=== PATIENT | male | born 1980 | race Caucasian/White ===

== ENCOUNTER 2018-11-13 17:03 | Emergency (ER) | payer SELFPAY ==
[~2018-11-13] VITALS: Ht 182.9 cm; Wt 127.0 kg
[2018-11-13] MEDS ORDERED: ONDANSETRON ODT8 MG PO (18:26)
== END 2018-11-13 18:43 | disposition home or self-care (01) ==
LOC: ED 17:03
DX: J10.1 Influenza due to other identified influenza virus with other respiratory manifestations (principal); Z88.0 Allergy status to penicillin
CPT/HCPCS: 87502; 99283

== ENCOUNTER 2019-06-08 14:07 | Emergency (ER) | payer OTHER ==
[~2019-06-08] VITALS: Ht 182.9 cm; Wt 124.7 kg
[~2019-06-08 14:07] MED LIST: ONDANSETRON ODT8 MG PO
[2019-06-08] MEDS ORDERED: NORCO 7.5-3251 EACH PO (16:37)
== END 2019-06-08 17:18 | disposition home or self-care (01) ==
LOC: ED 14:07
PROC: 0SSFXZZ Reposition Right Ankle Joint, External Approach (ICD-10-PCS; principal; 2019-06-08)
DX: S82.61XA Displaced fracture of lateral malleolus of right fibula, initial encounter for closed fracture (principal); S82.51XA Displaced fracture of medial malleolus of right tibia, initial encounter for closed fracture; S93.04XA Dislocation of right ankle joint, initial encounter; Z88.0 Allergy status to penicillin; X50.1XXA Overexertion from prolonged static or awkward postures, initial encounter
CPT/HCPCS: 27840; 73610; 99283-25; J3010

== ENCOUNTER 2019-06-14 08:00 | Day surgery (SDC) | payer OTHER ==
[~2019-06-14] VITALS: Ht 182.9 cm; Wt 124.7 kg
[~2019-06-14 08:00] MED LIST changes: +AMLODIPINE BESY10 MG PO; +LIPITOR80 MG PO; +NORCO 7.5-3251 EACH PO; +TOPROL XL100 MG PO
--- NOTE | 2019-06-14 10:21 | NUR ---
CHECKED IN ON PATIENT. PATIENT RESTING COMFORTABLY. SHORTLY AFTER ARRIVED WITH BED SPRING MAKER TO ASSIST WITH SCIATIC BLOCK. PATIENT FLUIDS RUNNING LOW. NEW BAG WAS STARTED. PATIENT HAD NO QUESTIONS OR COMPLAINTS AT THIS TIME. PATIENT STATED LEG WAS STARTING TO FEEL HEAVY.
[2019-06-14] MEDS ORDERED: HYDROCODON-ACE1 EA11 PO (12:58)
--- NOTE | 2019-06-14 13:10 | NUR ---
06/14/19 1310 Veronica Mcclain 1300- PT ARRIVES TO PACU NONAROUSABLE TO NOXIOUS STIMULI. RESP EVEN AND UNLABORED WITH OPA IN PLACE. OXYGEN SAT LOW TO MID 90'S ON 6L VIA MASK. 1309- PT BECOMING MORE AROUSABLE. INSTRUCTED PT TO REMOVE OPA. PT IS ABLE TO PERFORM THIS.
[2019-06-14] MEDS ORDERED: NORCO 7.5-3251 EACH PO (17:26)
--- NOTE | 2019-06-15 07:48 | OR ---
[facility] [address], [place] [address] Signed DATE OF OPERATION: 06/14/2019 SURGEON: Walker Malcolm MD PREOPERATIVE DIAGNOSIS: Displaced Valladares B lateral malleolus fracture. POSTOPERATIVE DIAGNOSIS: Displaced Valladares B lateral malleolus fracture. PROCEDURE PERFORMED: Open reduction and internal fixation of right ankle. ANESTHESIA: General. BLOOD LOSS: Minimal. IMPLANTS: 3 x 130 FibuLock and 2 screws. BRIEF HISTORY: Bertha is a 38-year-old gentleman, who suffered an on-the-job injury fracturing his ankle. He had displacement on his initial radiographs with widening of the mortise. Risks and benefits of operative treatment were discussed with him. He elected to proceed. DESCRIPTION OF PROCEDURE: Once consent was obtained, he was taken to the operating room. After adequate anesthesia, he was placed on operating room table. All downside pressure points were well padded. Hip bump was placed. The leg was then prepped and draped in a standard sterile fashion. The fibula was then marked out under image intensifier guidance and the tip of the fibula was marked. A 1 cm incision was made distal to this. Subcutaneous dissection was taken down to the tip of the fibula. The first K-wire was introduced from the tip of the fibula across the fracture. This was overdrilled using the big drill followed by the placement of the small guide eufemia. We could not get it to go up the canal of the fibula and ultimately the 3.1 drill was just advanced straight up the canal under image intensifier guidance in a biplanar fashion. Prior to this, we did reduce and hold the fracture with a clamp percutaneously. We then did the drilling. The drill was removed and a 3 x 130 was advanced from the tip of the fibula proximally Electronically Signed By: WALKER MALCOLM MD 06/15/19 0748 PATIENT NAME: BERTHA DURAN OPERATIVE REPORT DATE OF : 78 REPORT #: [id number] PHYSICIAN: WALKER MALCOLM MD PCP: OTHER PCP REPORT IS CONFIDENTIAL AND NOT TO BE RELEASED WITHOUT AUTHORIZATION [facility] [address] [place], [place] [address] Signed until engaging the body of the fibula. It was well seated. Proximal pins were then deployed and two screws were placed percutaneously through the distal FibuLock engaging the body of the distal portion. Excellent fixation was obtained. The mortise was even throughout. The insertion handle was removed and end cap was placed. The wounds were then closed using anamika. He was then dressed with a Mepilex Ag dressing, ABD, and Ortiz wrap. He was placed in a fracture boot, taken to the recovery room in satisfactory condition. All sponge, needle, and instrument counts were correct. Walker Malcolm MD BA/YAYOL /[id number] Copies: ~ Electronically Signed By: WALKER MALCOLM MD 06/15/19 0748 PATIENT NAME: BERTHA DURAN BRENDA OPERATIVE REPORT DATE OF : 78 REPORT #: [id number] PHYSICIAN: WALKER MALCOLM MD PCP: OTHER PCP REPORT IS CONFIDENTIAL AND NOT TO BE RELEASED WITHOUT AUTHORIZATION
== END 2019-06-14 15:00 | disposition home or self-care (01) ==
LOC: OPS 08:00 → DS 08:00 → OPS 12:00 → DS 12:00 → OPS 15:00
PROVIDERS: Specialist
PROC: 0QSJ04Z Reposition Right Fibula with Internal Fixation Device, Open Approach (ICD-10-PCS; principal; 2019-06-14 12:00)
DX: S82.61XA Displaced fracture of lateral malleolus of right fibula, initial encounter for closed fracture (principal); I10 Essential (primary) hypertension; N19 Unspecified kidney failure; I25.2 Old myocardial infarction; G47.30 Sleep apnea, unspecified; Z88.0 Allergy status to penicillin; Z87.891 Personal history of nicotine dependence; Z79.899 Other long term (current) drug therapy; Z95.5 Presence of coronary angioplasty implant and graft; X58.XXXA Exposure to other specified factors, initial encounter
CPT/HCPCS: 01480; 64445; 73610; 76942; 80053; 85025; C1713; J0131; J0690; J1100; J1885; J2250; J2405; J2704; J2795; J3010; J7120; L4386